=== PATIENT | male | born 1990 | race Caucasian/White ===

== ENCOUNTER 2017-04-20 17:06 | Emergency (ER) | payer OTHER ==
[~2017-04-20] VITALS: Ht 180.3 cm; Wt 77.1 kg
[~2017-04-20 17:06] MED LIST: BACTRIM DS TAB1 EACH PO; BENADRYL25 MG PO; CARAFATE 1 GM TA1 G1 PO; DOXYCYCLINE 10100 M2 PO; DOXYCYCLINE 10100 MG PO; HYDROCODONE-APA10 ML PO; IBUPROFEN 600600 M1 PO; INVEGA3 MG PO; NAPROSYN500 MG PO; NEXIUM40 MG PO; NOHOMEMEDICATIONS; NORCO 5-325 TA1 EACH PO; NORFLEX100 MG PO; PEPCID40 MG PO; PERMETHRIN60 GM TOP; PHENERGAN 25 MG25 M1 PO; PREDNISONE 20 M20 MG PO; PRILOSEC 20 MG20 MG PO; PROZAC 20 MG20 M1 PO; SPORANOX100 M1 PO; TRAMADOL 50 MG50 MG PO; TRAZODONE 150150 M1; ULTRAM 50MG TAB50 MG PO; ZANTAC 150MG T150 MG PO; ZOFRAN ODT4 MG PO
[2017-04-20] MEDS ORDERED: NEXIUM40 MG PO (18:06)
[2017-04-20 19:06] VITALS: BP 129/81
== END 2017-04-20 19:07 | disposition home or self-care (01) ==
LOC: ER 17:06
DX: K21.9 Gastro-esophageal reflux disease without esophagitis (principal); Z90.49 Acquired absence of other specified parts of digestive tract

== ENCOUNTER 2017-05-02 13:34 | Emergency (ER) | payer OTHER ==
[2017-05-02 13:34] VITALS: BP 137/71
== END 2017-05-02 15:45 | disposition left against medical advice (07) ==
LOC: ER 13:34
DX: Z53.21 Procedure and treatment not carried out due to patient leaving prior to being seen by health care provider (principal)

== ENCOUNTER 2017-06-30 05:08 | Emergency (ER) | payer OTHER ==
[~2017-06-30] VITALS: Ht 177.8 cm; Wt 74.8 kg
[2017-06-30 06:08] LABS: BASOPHILS 0.7 % (0.0-2.0); EOSINOPHILS 1.8 % (0.0-3.0); HEMATOCRIT 44.8 % (42.0-52.0); LYMPHOCYTES 35.9 % (24.0-44.0); MCH 28.1 pg (26.0-34.0); MCHC 33.6 g/dL (28.0-37.0); MCV 83.8 fL (80.0-100.0); MONOCYTES 8.4 % (1.0-8.0); PLATELET COUNT 263 thou/uL (150-400); POLYS 53.2 % (36.0-66.0); RBC 5.34 mil/uL (4.50-6.00); RDW 13.5 % (10.5-14.5); WBC 7.5 thou/uL (4.0-11.0)
[2017-06-30 06:12] LABS: MANUAL DIFF NO
[2017-06-30 06:16] LABS: CALCIUM 9.4 mg/dL (8.5-10.1); POTASSIUM 3.9 mmol/L (3.5-5.1)
[2017-06-30 06:21] LABS: URINE BILIRUBIN NEGATIVE (Negative); URINE BLOOD TRACE (Negative); URINE COLOR YELLOW; URINE GLUCOSE-RANDOM* NEGATIVE (Negative); URINE KETONES NEGATIVE (Negative); URINE LEUKOCYTES-REFLEX NEGATIVE (Negative); URINE PROTEIN (DIPSTICK) NEGATIVE (Negative); URINE SPECIFIC GRAVITY >= 1.030 (1.003-1.035); URINE UROBILINOGEN 0.2 E.U./dl (0.2-1.0)
[2017-06-30 06:22] LABS: ALBUMIN 4.4 g/dL (3.4-5.0); TOTAL BILIRUBIN 0.4 mg/dL (<0.1-1.0); TOTAL PROTEIN 8.3 g/dL (6.4-8.2)
[2017-06-30] MEDS ORDERED: MIRALAX255 GM PO (06:35)
[2017-06-30] MEDS ORDERED: LINZESS72 MCG (06:35)
[2017-06-30 06:54] VITALS: BP 116/76
== END 2017-06-30 07:12 | disposition home or self-care (01) ==
LOC: ER 05:08
PROVIDERS: Emergency Medicine
DX: K58.1 Irritable bowel syndrome with constipation (principal); Z98.890 Other specified postprocedural states

== ENCOUNTER 2017-08-26 15:40 | Emergency (ER) | payer OTHER ==
[~2017-08-26] VITALS: Ht 177.8 cm; Wt 77.1 kg
--- NOTE | ~2017-08-26 | EKG ---
[address] [address] ELECTROCARDIOGRAM REPORT Name: QING PHILLIPS Room #: [facility]#: [id number] Admission: 08/26/17 Attend Phys: Discharge: 08/26/17 Date of : [birth year] Report #: [id number] THIS REPORT FOR: //name// [facility] ED Test Date: 2017-08-26 Test Time: 16:09:51 Pat Name: QING SMITHOJA Department: Room: Gender: M Chair: JÚNIOR : 1990 Requested By: Christy Stark Order Number: [id number] MD: Enrique Webb Measurements Intervals [place] Rate: 80 P: 58 NC: 138 QRS: 28 QRSD: 88 T: 18 QT: 353 QTc: 408 Interpretive Statements Sinus rhythm No previous ECG available for comparison Electronically Signed On 08-26-2017 22:42:24 CDT by Enrique Webb [email or web address] <ELECTRONICALLY SIGNED> By: Enrique Webb MD 08/26/17 [id number] MD AURORA Contreras
[~2017-08-26 15:40] MED LIST changes: +LINZESS72 MCG; +MIRALAX255 GM PO
[2017-08-26 16:57] LABS: HEMATOCRIT 42.5 % (42.0-52.0); MCH 27.4 pg (26.0-34.0); MCV 83.1 fL (80.0-100.0); RBC 5.12 mil/uL (4.50-6.00); RDW 13.5 % (10.5-14.5)
[2017-08-26 17:06] LABS: CALCIUM 9.1 mg/dL (8.5-10.1); CREATININE 0.9 mg/dL (0.7-1.3); POTASSIUM 3.9 mmol/L (3.5-5.1)
[2017-08-26] MEDS ORDERED: MOBIC7.5 MG PO (17:44)
[2017-08-26 18:40] VITALS: BP 125/74
== END 2017-08-26 18:43 | disposition home or self-care (01) ==
LOC: ER 15:40
PROVIDERS: Physician Assistant
DX: R07.9 Chest pain, unspecified (principal); R09.1 Pleurisy; Z90.49 Acquired absence of other specified parts of digestive tract

== ENCOUNTER 2019-01-09 01:06 | Emergency (ER) | payer OTHER ==
[~2019-01-09] VITALS: Ht 177.8 cm; Wt 80.3 kg
[~2019-01-09 01:06] MED LIST changes: +MOBIC7.5 MG PO
[2019-01-09] MEDS ORDERED: ONDANSETRON ODT4 MG PO (01:12)
[2019-01-09 01:32] LABS: ABSOLUTE NEUTROPHILS 11.5 thou/uL (1.4-8.2); BASOPHILS 0.3 % (0.0-2.0); EOSINOPHILS 0.4 % (0.0-3.0); HEMATOCRIT 44.2 % (42.0-52.0); HEMOGLOBIN 14.9 gm/dL (14.0-18.0); LYMPHOCYTES 6.4 % (24.0-44.0); MCH 27.9 pg (26.0-34.0); MCHC 33.8 g/dL (28.0-37.0); MCV 82.6 fL (80.0-100.0); MONOCYTES 7.1 % (1.0-8.0); PLATELET COUNT 270 thou/uL (150-400); POLYS 85.8 % (36.0-66.0); RBC 5.34 mil/uL (4.50-6.00); RDW 13.7 % (10.5-14.5); WBC 13.4 thou/uL (4.0-11.0)
[2019-01-09 01:39] LABS: CALCIUM 9.5 mg/dL (8.5-10.1); CREATININE 1.1 mg/dL (0.7-1.3); POTASSIUM 3.6 mmol/L (3.5-5.1)
[2019-01-09 01:45] LABS: ALBUMIN 4.5 g/dL (3.4-5.0); TOTAL BILIRUBIN 0.6 mg/dL (<0.1-1.0); TOTAL PROTEIN 8.1 g/dL (6.4-8.2)
[2019-01-09] MEDS ORDERED: BENTYL 20 MG TA20 M1 PO (01:49)
[2019-01-09] MEDS ORDERED: PEPCID40 MG PO (01:49)
[2019-01-09] MEDS ORDERED: ONDANSETRON HCL4 M2 PO (01:49)
[2019-01-09 02:16] VITALS: BP 114/46
== END 2019-01-09 02:17 | disposition home or self-care (01) ==
LOC: ER 01:06
PROVIDERS: Emergency Medicine
DX: R10.13 Epigastric pain (principal); Z90.49 Acquired absence of other specified parts of digestive tract

== ENCOUNTER 2019-07-03 16:33 | Emergency (ER) | payer OTHER ==
[~2019-07-03] VITALS: Ht 177.8 cm; Wt 72.6 kg
[~2019-07-03 16:33] MED LIST changes: +BENTYL 20 MG TA20 M1 PO; +ONDANSETRON HCL4 M2 PO; +ONDANSETRON ODT4 MG PO
[2019-07-03] MEDS ORDERED: IBUPROFEN 800800 M1 PO (17:01)
[2019-07-03] MEDS ORDERED: ULTRAM 50MG TAB50 MG PO (17:01)
[2019-07-03 17:50] VITALS: BP 110/82
== END 2019-07-03 17:52 | disposition home or self-care (01) ==
LOC: ER 16:33
DX: S62.346A Nondisplaced fracture of base of fifth metacarpal bone, right hand, initial encounter for closed fracture (principal); Z90.49 Acquired absence of other specified parts of digestive tract; W22.8XXA Striking against or struck by other objects, initial encounter; Y93.89 Activity, other specified; Y92.89 Other specified places as the place of occurrence of the external cause; Y99.8 Other external cause status

== ENCOUNTER 2019-07-20 08:35 | Day surgery (SDC) | payer OTHER ==
[~2019-07-20] VITALS: Ht 172.7 cm; Wt 54.4 kg
--- NOTE | ~2019-07-20 | O ---
[facility] [place] [address] OPERATIVE REPORT Name: QING PHILLIPS Room #: [facility]..#: [id number] Admission: 07/20/19 ������������������ Attend Phys: Susanna Powell, Discharge: 07/20/19 ������������������ Date of : [birth year] Report #: [id number] THIS REPORT FOR: //name// CC: Earline Powell DATE OF SERVICE: 07/20/2019 PREOPERATIVE DIAGNOSIS: Right small finger metacarpal base fracture dislocation. POSTOPERATIVE DIAGNOSIS: Right small finger metacarpal base fracture dislocation. PROCEDURE PERFORMED: Open reduction and internal fixation, right small finger metacarpal base fracture dislocation. SURGEON: Susanna Powell MD ANESTHESIA: General mask anesthesia. ESTIMATED BLOOD LOSS: Minimal. TOURNIQUET TIME: Approximately 45 minutes, please see intraoperative record. COMPLICATIONS: None. CONDITION: Stable. DISPOSITION: Recovery room. INDICATIONS: The patient is a 28-year-old male with the above-mentioned diagnosis. He elects for operative treatment. The risks, benefits, alternatives and complications were discussed including but not limited to infection, damage to vessels or nerves, nonunion, malunion, hardware failure, hardware rotation stiffness. Informed consent was obtained. Correct extremity was identified and labeled by myself after verbal confirmation of the patient as well as visual confirmation and signed informed consent. DESCRIPTION OF PROCEDURE: The patient was brought to the operating room and placed on a supine position. He received preoperative antibiotics. Tourniquet was placed over padding on the patient's right upper extremity was sterilely prepped and draped in the usual fashion. Final timeout was taken to verify correct patient, operative procedure, operative site, all concurred. The arm was elevated, exsanguinated and tourniquet inflated. Next, a closed reduction maneuver was attempted using fluoroscopic guidance and nerve reduction was [facility] [address] [place] [address] OPERATIVE REPORT Name: QING PHILLIPS Room #: [facility]#: [id number] Admission: 07/20/19 ������������������ Attend Phys: Susanna Powell, Discharge: 07/20/19 ������������������ Date of : 89 Report #: [id number] unable to be performed and so approximately 4 cm incision was made over the small finger CMC joint. Dissection was carried down through subcutaneous tissue with tenotomy scissors. The tendons were retracted. The periosteum was incised and the fracture was easily identified. There was indeed a dorsal and ulnar subluxation of the fragments. The fragments were cleaned of clot and debris and I was able to reduce them quite nicely. There was a comminuted impacted mid portion of the bone that I was able to get somewhat disimpacted. This area was severely comminuted. Next, 3 K wires were placed, one from the metacarpal into the hamate and the second from the ulnar fracture site into the adjacent bone and a third from the metaphysis of the small finger to the ring finger to decrease any forces across the fracture site. These were all 0.045 inch K-wires and fluoroscopy was used to assist. These pins were cut beneath the skin. The wound was thoroughly irrigated. The capsule was closed with 3-0 Ethibond suture. The skin was closed with 4-0 nylon suture. The wounds were dressed with Adaptic and sterile gauze. He was placed in a bulky dressing and a dorsal volar slab splint pass the MP joints. All fingers were pink with brisk capillary refill at the conclusion of case after deflation of tourniquet. All sponge and needle counts were correct. The patient was transferred to postoperative room in stable condition. ��������������������������������������������� ���������������������������������������� By: ��������������������������������������������� [id number] Susanna Powell MD /nt
[~2019-07-20 08:35] MED LIST changes: +IBUPROFEN 800800 M1 PO
[2019-07-20 09:38] VITALS: BP 120/66
[2019-07-20 17:06] VITALS: BP 120/66
== END 2019-07-20 16:53 | disposition home or self-care (01) ==
LOC: OR 08:35 → TBA 08:47 → OR 14:02
DX: S62.316A Displaced fracture of base of fifth metacarpal bone, right hand, initial encounter for closed fracture (principal); K21.9 Gastro-esophageal reflux disease without esophagitis; Z79.899 Other long term (current) drug therapy; Z98.890 Other specified postprocedural states; Z90.49 Acquired absence of other specified parts of digestive tract; X58.XXXA Exposure to other specified factors, initial encounter; Y93.89 Activity, other specified; Y92.89 Other specified places as the place of occurrence of the external cause; Y99.8 Other external cause status
CPT/HCPCS: 50010; 50101; 50386; 51291; 51736; 56525; 56526; 57006; 57091; 57178; 62110; 62900; 70005